=== PATIENT | male | born 1995 | race Caucasian/White ===

== ENCOUNTER 2018-11-01 22:17 | Emergency (ER) | payer OTHER ==
[2018-11-01 22:27] VITALS: BP 130/89
--- NOTE | 2018-11-01 22:38 | EDPHY ---
H & P Stated Complaint: SLIPPED DISC 2 DAYS AGO, ARMPITS BLUE Time Seen by Provider: 11/01/18 22:38 HPI/ROS: HPI CHIEF COMPLAINT: Upper back pain. HISTORY OF PRESENT ILLNESS: Very pleasant 22-year-old male, he has a constant takes online classes, he lives locally here in [place] presents emergency room with 2 main complaints his 1st complaint is that his axillary region or armpits her blue. Also reports he has had some upper back pain. He thinks maybe is a pinched nerve. He denies any trauma. He denies recent illness, denies chest pain or shortness of breath. Denies pleuritic pain, denies focal numbness or tingling. Patient's main complaint upper back pain and blue armpits. Upon arrival to the emergency room I was able to examine his axillary bilaterally and took a alcohol swab and removed a topical blue discoloration to his axillary. I wonder if he has been wearing a new blue T-shirt or something that rubbed off Blue topically to his skin. Additionally as for his back exam there is no midline thoracic spine pain however he does complain of some mild pain paravertebral thoracic spine. No arm weakness or numbness or tingling. Pain is mainly located paravertebral upper thoracic in 1 focal area. Past Medical History: Denies significant medical history Past Surgical History: Denies significant surgical history Social History: Denies drugs alcohol tobacco. Student. Family History: Noncontributory ROS REVIEW OF SYSTEMS: 10 Systems were reviewed and negative with the exception of the elements mentioned in the history of present illness. Exam Constitutional triage nursing summary reviewed, vital signs reviewed, awake/ alert. Eyes normal conjunctivae and sclera, EOMI, PERRLA. HENT normal inspection, atraumatic, moist mucus membranes, no epistaxis, neck supple/ no meningismus, no raccoon eyes. Respiratory clear to auscultation bilaterally, normal breath sounds, no respiratory distress, no wheezing. Cardiovascular rate normal, regular rhythm, no murmur, no edema, distal pulses normal. Gastrointestinal soft, non-tender, no rebound, no guarding, normal bowel sounds, no distension, no pulsatile mass. Genitourinary no CVA tenderness. Musculoskeletal thoracic spine upper back: No midline thoracic spine pain or step-offs or crepitus. Some mild tenderness palpation paravertebral of the upper thoracic spine. Good test preparation tutor strength bilaterally of both arms, sensation intact good distal pulses. Good arm strength. no midline vertebral tenderness, full range of motion, no calf swelling, no tenderness of extremities, no meningismus, good pulses, neurovascularly intact. Skin pink, warm, & dry, no rash, skin atraumatic. Neurologic awake, alert and oriented x 3, AAOx3, moves all 4 extremities equally, motor intact, sensory intact, CN II-XII intact, normal cerebellar, normal vision, normal speech. Psychiatric normal mood/affect. Heme/Lymph/Immune no lymphadenopathy. Differential Diagnosis: Includes but is not limited to in a particular order muscle skeletal back pain, nerve root compression, annular tear, disc herniation , muscle spasm Medical Decision Making: Here in emergency room I was able to wipe waited topical blue discoloration both axillary regions most likely from a shirt. Additionally plan for x-ray of the thoracic spine to help delineate his back pain. However I feel this is most likely musculoskeletal more muscle spasm than anything. I have offered the patient anti-inflammatory pain medicine here however he has declined. Re-evaluation: X-ray of the thoracic spine reviewed negative for acute fracture significant malalignment. I re-evaluated the patient at 12:45 a.m. Is resting comfortably no acute distress and denies any complaints at this time. He states since resting here his pain is 2/10. Initially was 7/10. He denies any chest pain or shortness of breath denies pleuritic pain. His main complaint is paravertebral thoracic upper spine pain. No midline pain. No neck pain, no neck stiffness no fever no headache. The patient would like to go home. I do believe he has musculoskeletal back pain. I do recommend he takes anti-inflammatory pain medicine either Tylenol Motrin, ice and rest. He was very hesitant to take Tylenol Motrin and did not want to do so in the emergency room but I did recommend that it may help him. He decided on taking a dose of Tylenol. Additionally also offered to talk to his mom who is in [place] however he has declined this. Return precautions discussed with the patient is comfortable this plan. Source: Patient - Personal History Current Tetanus Diphtheria and Acellular Pertussis (TDAP): Unsure - Medical/Surgical History Hx Asthma: No Hx Chronic Respiratory Disease: No Hx Diabetes: No Hx Cardiac Disease: No Hx Renal Disease: No Hx Cirrhosis: No Hx Alcoholism: No Hx HIV/AIDS: No Hx Splenectomy or Spleen Trauma: No Other PMH: ADENOIDS, TONSILECTOMY, GYNOCLYMASTA, DAILY MJ USE - Social History Smoking Status: Never smoked Constitutional: Initial Vital Signs Temperature (C) 36.7 C 11/01/18 22:24 Heart Rate 97 11/01/18 22:24 Respiratory Rate 16 11/01/18 22:24 Blood Pressure 130/89 H 11/01/18 22:24 O2 Sat (%) 94 11/01/18 22:24 O2 Delivery Mode Room Air Allergies/Adverse Reactions: No Known Allergies Allergy (Unverified 11/01/18 22:23) Home Medications: Medication Instructions Recorded NK [No Known Home Meds] 11/01/18 Medical Decision Making - Diagnostics Imaging Results: Imaging Impressions Thoracic Spine X-Ray 11/01/18 22:48 Impression: Normal. No source for pain identified. Departure - Departure Disposition: Home, Routine, Self-Care Clinical Impression: Back pain Condition: Good Instructions: Back Pain (ED) Additional Instructions: 1. Recommend rest. 2. Recommend anti-inflammatory pain medicine like Tylenol and Motrin 3. Ice pack. 4. Follow up with her primary care doctor 5. Return emergency room if worsening symptoms Referrals: NONE *PRIMARY CARE P,. [Primary Care Provider] - As per Instructions
[2018-11-02] MEDS ORDERED: ACETAMINOPHEN 500 MG TAB PO ONE (00:44)
== END 2018-11-02 01:02 | disposition home or self-care (01) ==
DX: M54.6 Pain in thoracic spine (principal)